=== PATIENT | male | born 1970 | race Caucasian/White ===

== ENCOUNTER → 2017-01-21 | Outpatient (CLI) | payer OTHER ==
[2017-01-21 10:33] LABS: BLOOD UREA NITROGEN 8 MG/DL (7-18); CREATININE FOR GFR 1.03 MG/DL (0.70-1.30); GLUCOSE, FASTING 111 MG/DL (70-105)
[2017-01-21 10:34] LABS: ALBUMIN 4.6 GM/DL (3.2-5.2); ALBUMIN/GLOBULIN RATIO 1.53 (1.00-1.93); ALKALINE PHOSPHATASE 107 U/L (45-117); ALT/SGPT 76 U/L (12-78); ANION GAP 11 MEQ/L (8-16); AST/SGOT 36 U/L (15-37); BILIRUBIN,TOTAL 0.7 MG/DL (0.2-1.0); CALCIUM LEVEL 9.4 MG/DL (8.5-10.1); CARBON DIOXIDE LEVEL 29 MEQ/L (21-32); CHLORIDE LEVEL 103 MEQ/L (98-107); CHOLESTEROL LEVEL 206 MG/DL (<200); FREE T4 1.12 NG/DL (0.76-1.46); GLOMERULAR FILTRATION RATE > 60.0 (>60); POTASSIUM SERUM 3.7 MEQ/L (3.5-5.1); SODIUM LEVEL 143 MEQ/L (136-145); TOTAL PROTEIN 7.6 GM/DL (6.4-8.2); TRIGLYCERIDES LEVEL 131 MG/DL (<150)
== END ==
LOC: M LAB 09:44
PROVIDERS: ATTEND Nurse Practitioner Family
DX: E03.9 Hypothyroidism, unspecified (principal)

== ENCOUNTER 2017-04-12 12:56 | Emergency (ER) | payer OTHER ==
[~2017-04-12] VITALS: Ht 170.2 cm; Wt 81.6 kg
[2017-04-12] MEDS ORDERED: SYNT25TA PO (13:20)
[2017-04-12] MEDS ORDERED: NALT50TA4 PO (13:20)
[2017-04-12] MEDS ORDERED: ACAM0.05 PO (13:20)
[2017-04-12] MEDS ORDERED: METO-207 PO (13:20)
--- NOTE | 2017-04-12 14:14 | REP ---
Clinical: Patellar pain. Technique: AP, lateral, bilateral oblique and sunrise views of the right knee. Findings: The patella demonstrates a small spurring along the lateral as well as superior and inferior margins. The patellofemoral joint space appears normal. Mild prepatellar soft tissue swelling cannot be excluded. The tibiofemoral joint appears normal for age and without degenerative change. No acute fracture or dislocation. Impression: 1. Mild spurring along the patellar margin and subtle prepatellar soft tissue swelling. 2. Otherwise normal age appropriate examination. Signed by Bobby Reddy MD 04/12/2017 02:06 P
[2017-04-12 14:57] VITALS: BP 135/94
== END 2017-04-12 15:16 | disposition home or self-care (01) ==
LOC: M ED 14:06
DX: M17.11 Unilateral primary osteoarthritis, right knee (principal); I10 Essential (primary) hypertension; E07.9 Disorder of thyroid, unspecified; Z79.899 Other long term (current) drug therapy

== ENCOUNTER 2017-08-11 07:05 | Emergency (ER) | payer OTHER ==
[~2017-08-11] VITALS: Ht 167.6 cm; Wt 135.0 kg
[~2017-08-11 07:05] MED LIST: ACAM0.05 PO; METO1TAB7 PO; NALT50TA4 PO; SYNT25TA PO
[2017-08-11] MEDS ORDERED: LORazepam 2 MG TAB PO STA (07:34)
[2017-08-11] MEDS ORDERED: ASPIRIN 81 MG CHEW TABLET PO ONE (07:45)
[2017-08-11 07:49] LABS: BASO % 0.9 % (0.0-1.0); EOS # 0.1 10^3/uL (0.0-0.50); EOS % 2.1 % (0.0-3.0); IMMATURE GRANULOCYTE % 0.6 % (0-0); LYMPH # 1.4 10^3/uL (1.5-4.5); LYMPH % 29.7 % (24.0-44.0); MEAN CORPUSCULAR HEMOGLOBIN 32.4 pg (27.0-33.0); MEAN CORPUSCULAR HGB CONC 36.2 g/dl (32.0-36.5); MEAN CORPUSCULAR VOLUME 89.6 fl (80.0-96.0); MONO # 0.3 10^3/uL (0.0-0.8); MONO % 6.2 % (0.0-5.0); NEUTROPHILS # 2.8 10^3/uL (1.8-7.7); NEUTROPHILS % 60.5 % (36.0-66.0); PLATELET COUNT, AUTOMATED 302 10^3/uL (150-450); RED CELL DISTRIBUTION WIDTH 12.3 % (11.5-14.5); WHITE BLOOD COUNT 4.7 10^3/uL (4.0-10.0)
[2017-08-11 08:14] LABS: ALBUMIN/GLOBULIN RATIO 1.18 (1.00-1.93); ALKALINE PHOSPHATASE 94 U/L (45-117); ALT/SGPT 38 U/L (12-78); ANION GAP 5 MEQ/L (8-16); AST/SGOT 23 U/L (15-37); BILIRUBIN,DIRECT < 0.1 MG/DL (0.0-0.2); BILIRUBIN,TOTAL 0.4 MG/DL (0.2-1.0); BLOOD UREA NITROGEN 8 MG/DL (7-18); CALCIUM LEVEL 9.2 MG/DL (8.5-10.1); CARBON DIOXIDE LEVEL 30 MEQ/L (21-32); CHLORIDE LEVEL 106 MEQ/L (98-107); CREATININE FOR GFR 0.81 MG/DL (0.70-1.30); FREE T4 0.87 NG/DL (0.76-1.46); GLOMERULAR FILTRATION RATE > 60.0 (>60); GLUCOSE, FASTING 131 MG/DL (70-105); POTASSIUM SERUM 3.5 MEQ/L (3.5-5.1); SODIUM LEVEL 141 MEQ/L (136-145); TOTAL PROTEIN 7.4 GM/DL (6.4-8.2)
--- NOTE | 2017-08-11 08:43 | REP ---
PA and lateral chest: There are no comparisons. The lung barillas are clear. The cardiac size is normal The paris, mediastinum, and bony thorax are unremarkable. Impression: Negative PA and lateral chest. Signed by Kodi Hanks MD 08/11/2017 08:35 A
--- NOTE | 2017-08-11 09:33 | ECGEPIP ---
Stationary ECG Study [facility] - ED Test Date: 2017-08-11 Pat Name: KRISTIAN TAM Department: Room: - Gender: M [employer]: af : 1970 Requested By: Farrah Tejeda Order Number: [id number] Reading MD: Farrah Tejeda Measurements Intervals [place] Rate: 69 P: 32 ND: 165 QRS: 42 QRSD: 112 T: 31 QT: 380 QTc: 407 Interpretive Statements SINUS RHYTHM WITH SINUS ARRHYTHMIA MODERATE INTRAVENTRICULAR CONDUCTION DELAY NO PRIOR FOR COMPARISON Electronically Signed On 08-11-2017 9:32:47 EDT by Farrah Tejeda
[2017-08-11] MEDS ORDERED: ATIV1TAB7 PO ×2 (11:04→11:09)
[2017-08-11 11:35] VITALS: BP 145/75
== END 2017-08-11 11:42 | disposition home or self-care (01) ==
LOC: M ED 07:05
DX: R07.9 Chest pain, unspecified (principal); I10 Essential (primary) hypertension; F41.9 Anxiety disorder, unspecified; F17.220 Nicotine dependence, chewing tobacco, uncomplicated; Z82.49 Family history of ischemic heart disease and other diseases of the circulatory system; Z79.899 Other long term (current) drug therapy